=== PATIENT | female | born 1940 | race Caucasian/White ===

== ENCOUNTER 2017-09-14 08:00 | Day surgery (SDC) | payer MEDICARE ==
[~2017-09-14] VITALS: Ht 157.5 cm; Wt 67.1 kg
[~2017-09-14 08:00] MED LIST: ALLERGY NA50 MCG/ACT; AZELASTINE HCL0.1 %; COZAAR100 MG PO; CRESTOR20 MG PO; FENOFIBRATE130 MG PO; LEVOTHYROXIN100 MC1 PO; OMEPRAZOLE20 M1 PO; OSTEO BI-FLEX R1 TAB PO; PRESERVISION AREDS 2 PO; SG ASA LOW81 M1 PO; TURMERI1 PO; VITAMIN C500 M5 PO; WOMENS 50+ PO
[2017-09-14 10:58] VITALS: BP 131/65
== END 2017-09-14 11:25 | disposition home or self-care (01) ==
LOC: ENDO 08:00
PROVIDERS: ATTEND Surgery
PROC: 0DJD8ZZ Inspection of Lower Intestinal Tract, Via Natural or Artificial Opening Endoscopic (ICD-10-PCS; principal; 2017-09-14)
DX: Z12.11 Encounter for screening for malignant neoplasm of colon (principal); K57.30 Diverticulosis of large intestine without perforation or abscess without bleeding; I25.10 Atherosclerotic heart disease of native coronary artery without angina pectoris; E03.9 Hypothyroidism, unspecified; Z95.5 Presence of coronary angioplasty implant and graft

== ENCOUNTER 2018-04-27 10:39 | Emergency (ER) | payer MEDICARE ==
[~2018-04-27] VITALS: Ht 157.5 cm; Wt 80.0 kg
[2018-04-27] MEDS ORDERED: TORADOL PO (11:50)
[2018-04-27] MEDS ORDERED: MEDDOSEPAK PO (11:50)
[2018-04-27 11:56] VITALS: BP 154/79
== END 2018-04-27 12:05 | disposition home or self-care (01) ==
LOC: ED 10:39
DX: M47.816 Spondylosis without myelopathy or radiculopathy, lumbar region (principal); I10 Essential (primary) hypertension; I25.2 Old myocardial infarction; E78.5 Hyperlipidemia, unspecified; Z95.5 Presence of coronary angioplasty implant and graft

== ENCOUNTER 2019-12-05 | Emergency (ER) | payer MEDICARE ==
[~2019-12-05] MED LIST changes: +MEDDOSEPAK PO; +TORADOL PO
[2019-12-05 11:11] LABS: HEMATOCRIT 40.8 % (37.0-47.0); HEMOGLOBIN 13.7 g/dl (12.0-16.0); IMMATURE GRANULOCYTES 0.3 % (0.0-5.0); MEAN CELL VOLUME 93.2 fL CALC (80.0-100.0); MEAN CORPUSCULAR HGB 31.3 pG CALC (26.0-32.0); MEAN CORPUSCULAR HGB CONC 33.6 g/L CALC (32.0-36.0); NEUT# 4.43 thou/uL (2.00-7.15); RED BLOOD COUNT 4.38 mill/uL (4.20-5.60); RED CELL DISTRI WIDTH 12.9 % (11.5-15.5)
[2019-12-05 11:29] LABS: ALKALINE PHOSPHATASE 77 u/l (38-126); AMYLASE 47 u/l (30-110); ANION GAP 15 (6-22 (CALC)); BUN 7 mg/dL (8-23); BUN/CREATININE RATIO 13 (12-20 (CALC)); CARBON DIOXIDE 26 mmol/l (22-30); CHLORIDE 103 mmol/l (95-108); CREATININE 0.6 mg/dL (0.5-1.0); GFR > 60 ML/MIN (>=60 (CALC)); GFR FOR AFR.AMER. > 60 ML/MIN (>=60 (CALC)); LIPASE 75 u/l (23-300); POTASSIUM 3.6 mmol/l (3.5-5.1); SGOT/AST 24 u/l (9-36); SODIUM 140 mmol/l (137-146)
[2019-12-05 11:37] LABS: ALBUMIN 4.3 g/dL (3.2-5.0); BILIRUBIN, TOTAL 0.4 mg/dL (0.0-1.4); TOTAL PROTEIN 7.1 g/dL (6.3-8.2)
[2019-12-05] MEDS ORDERED: BENICAR40 MG PO (11:39)
[2019-12-05] MEDS ORDERED: SB ALLERGY10 MG PO (11:40)
[2019-12-05] MEDS ORDERED: METOPROL TAR25 M1 PO (11:41)
[2019-12-05] MEDS ORDERED: OMEGA PO (11:41)
[2019-12-05] MEDS ORDERED: IRON27 MG PO (11:42)
[2019-12-05] MEDS ORDERED: ZETIA10 MG PO (11:44)
[2019-12-05] MEDS ORDERED: COLACE100 MG PO (11:44)
[2019-12-05] MEDS ORDERED: D3400 UNIT PO (11:45)
[2019-12-05] MEDS ORDERED: B COMPLE2 PO (11:46)
[2019-12-05 13:19] LABS: URINE BILIRUBIN - DIPSTICK NEGATIVE (NEGATIVE); URINE BLOOD DIPSTICK NEGATIVE (NEGATIVE); URINE COLOR YELLOW; URINE GLUCOSE - DIPSTICK NEGATIVE (NEGATIVE); URINE KETONE NEGATIVE (NEGATIVE); URINE LEUK ESTERASE TRACE (NEGATIVE); URINE NITRITE - DIPSTICK NEGATIVE (Negative); URINE PROTEIN - DIPSTICK NEGATIVE (NEG-TRACE); URINE SPECIFIC GRAVITY 1.025; URINE UROBILINOGEN - DIPSTICK 0.2 E.U./dL (0.2)
[2019-12-05] MEDS ORDERED: MIRALAX3350 N1 PO (13:29)
[2019-12-24] MEDS ORDERED: VIT E COMPLX400 UNIT PO (10:46)
[2019-12-24] MEDS ORDERED: NITROGLYCER0.4 MG SL (10:52)
[2020-04-15] MEDS ORDERED: NIFEDIPINE30 MG PO (12:29)
[2020-04-15] MEDS ORDERED: MELATONIN QUICK5 MG PO (12:30)
== END 2019-12-05 13:50 | disposition home or self-care (01) ==
PROVIDERS: Family Medicine
DX: K59.00 Constipation, unspecified (principal); I10 Essential (primary) hypertension; I25.2 Old myocardial infarction; Z95.5 Presence of coronary angioplasty implant and graft
CPT/HCPCS: S0164

== ENCOUNTER 2019-12-25 | Day surgery (SDC) | payer MEDICARE ==
[~2019-12-25] MED LIST changes: +B COMPLE2 PO; +BENICAR40 MG PO; +COLACE100 MG PO; +D3400 UNIT PO; +IRON27 MG PO; +METOPROL TAR25 M1 PO; +MIRALAX3350 N1 PO; +NITROGLYCER0.4 MG SL; +OMEGA PO; +SB ALLERGY10 MG PO; +VIT E COMPLX400 UNIT PO; +ZETIA10 MG PO
[2019-12-25] MEDS ORDERED: AMOXICILLIN500 M2 PO (09:36)
[2019-12-25] MEDS ORDERED: CLARITHROMYC500 M2 PO (09:36)
[2019-12-25] MEDS ORDERED: OMEPRAZOLE DR40 MG PO (09:36)
[2020-04-15] MEDS ORDERED: NIFEDIPINE30 MG PO (12:29)
[2020-04-15] MEDS ORDERED: MELATONIN QUICK5 MG PO (12:30)
== END 2019-12-25 10:10 | disposition home or self-care (01) ==
PROC: 0DBN8ZX Excision of Sigmoid Colon, Via Natural or Artificial Opening Endoscopic, Diagnostic (ICD-10-PCS; principal; 2019-12-25)
PROC: 0DB98ZX Excision of Duodenum, Via Natural or Artificial Opening Endoscopic, Diagnostic (ICD-10-PCS; 2019-12-25)
DX: K57.31 Diverticulosis of large intestine without perforation or abscess with bleeding (principal); K63.5 Polyp of colon; K29.71 Gastritis, unspecified, with bleeding; K44.9 Diaphragmatic hernia without obstruction or gangrene; K26.4 Chronic or unspecified duodenal ulcer with hemorrhage; K64.4 Residual hemorrhoidal skin tags; K64.8 Other hemorrhoids; I10 Essential (primary) hypertension

== ENCOUNTER 2020-04-22 07:52 | Day surgery (SDC) | payer MEDICARE ==
[~2020-04-22 07:52] MED LIST changes: +AMOXICILLIN500 M2 PO; +CLARITHROMYC500 M2 PO; +MELATONIN QUICK5 MG PO; +NIFEDIPINE30 MG PO; +OMEPRAZOLE DR40 MG PO
[2020-04-22 10:31] VITALS: BP 132/58
[2020-04-22 11:07] LABS: HEMATOCRIT 35.7 % (37.0-47.0); HEMOGLOBIN 12.3 g/dl (12.0-16.0); MEAN CELL VOLUME 92.5 fL CALC (80.0-100.0); MEAN CORPUSCULAR HGB 31.9 pG CALC (26.0-32.0); MEAN CORPUSCULAR HGB CONC 34.5 g/dL CAL (32.0-36.0); RED BLOOD COUNT 3.86 mill/uL (4.20-5.60); RED CELL DISTRI WIDTH 12.9 % (11.5-15.5)
== END 2020-04-22 11:05 | disposition home or self-care (01) ==
LOC: ENDO 07:52 → ORM 09:10 → ENDO 09:10 → ORM 10:00 → ENDO 11:05
PROVIDERS: ATTEND Surgery
PROC: 0DB68ZX Excision of Stomach, Via Natural or Artificial Opening Endoscopic, Diagnostic (ICD-10-PCS; principal; 2020-04-22)
PROC: 0DB78ZX Excision of Stomach, Pylorus, Via Natural or Artificial Opening Endoscopic, Diagnostic (ICD-10-PCS; 2020-04-22)
DX: K29.80 Duodenitis without bleeding (principal); K29.50 Unspecified chronic gastritis without bleeding; K44.9 Diaphragmatic hernia without obstruction or gangrene; I10 Essential (primary) hypertension; I25.2 Old myocardial infarction; Z87.11 Personal history of peptic ulcer disease; Z95.5 Presence of coronary angioplasty implant and graft; Z86.19 Personal history of other infectious and parasitic diseases; Z11.59 Encounter for screening for other viral diseases

== ENCOUNTER 2021-03-03 16:55 | Emergency (ER) | payer MEDICARE ==
[2021-03-03 18:06] LABS: HEMATOCRIT 38.6 % (37.0-47.0); HEMOGLOBIN 13.1 g/dl (12.0-16.0); IMMATURE GRANULOCYTES 0.3 % (0.0-5.0); MEAN CELL VOLUME 94.4 fL CALC (80.0-100.0); MEAN CORPUSCULAR HGB CONC 33.9 g/dL CAL (32.0-36.0); NEUT# 3.76 thou/uL (2.00-7.15); RED BLOOD COUNT 4.09 mill/uL (4.20-5.60); RED CELL DISTRI WIDTH 12.8 % (11.5-15.5)
[2021-03-03 18:25] LABS: ALBUMIN 4.3 g/dL (3.2-5.0); ALKALINE PHOSPHATASE 83 u/l (38-126); ANION GAP 11 (6-22 (CALC)); BILIRUBIN, TOTAL 0.5 mg/dL (0.0-1.4); BUN 11 mg/dL (8-23); BUN/CREATININE RATIO 20 (12-20 (CALC)); CARBON DIOXIDE 27 mmol/l (22-30); CHLORIDE 105 mmol/l (95-108); CREATININE 0.6 mg/dL (0.5-1.0); GFR > 60 ML/MIN (>=60 (CALC)); GFR FOR AFR.AMER. > 60 ML/MIN (>=60 (CALC)); LIPASE 94 u/l (23-300); POTASSIUM 3.5 mmol/l (3.5-5.1); SGOT/AST 40 u/l (9-36); SODIUM 139 mmol/l (137-146)
[2021-03-03 18:32] LABS: D-DIMER 0.31 mg/L (0.19-0.60)
[2021-03-03 18:37] LABS: ACT PARTIAL THROMBO TIME 21.4 SECONDS (20.0-32.5); PROTHROMBIN TIME 10.1 SECONDS (9.0-12.5)
[2021-03-03] MEDS ORDERED: CLARITIN10 M2 PO (19:34)
[2021-03-03] MEDS ORDERED: KEFLEX500 MG PO (19:34)
[2021-03-03 20:13] VITALS: BP 128/57
== END 2021-03-03 20:34 | disposition home or self-care (01) ==
LOC: ED 16:55
DX: J32.9 Chronic sinusitis, unspecified (principal); I10 Essential (primary) hypertension; E78.5 Hyperlipidemia, unspecified; I25.2 Old myocardial infarction; Z95.5 Presence of coronary angioplasty implant and graft; Z20.822 Contact with and (suspected) exposure to COVID-19; R06.02 Shortness of breath

== ENCOUNTER 2021-09-14 17:47 | Emergency (ER) | payer MEDICARE ==
[~2021-09-14] VITALS: Ht 154.9 cm; Wt 64.0 kg
[~2021-09-14 17:47] MED LIST changes: +CLARITIN10 M2 PO; +KEFLEX500 MG PO
[2021-09-14] MEDS ORDERED: TREXALL5 MG PO (18:20)
[2021-09-14 19:30] LABS: HEMATOCRIT 38.4 % (37.0-47.0); HEMOGLOBIN 13.1 g/dl (12.0-16.0); IMMATURE GRANULOCYTES 0.2 % (0.0-5.0); MEAN CORPUSCULAR HGB 32.8 pG CALC (26.0-32.0); MEAN CORPUSCULAR HGB CONC 34.1 g/dL CAL (32.0-36.0); RED CELL DISTRI WIDTH 12.9 % (11.5-15.5)
[2021-09-14 19:47] LABS: ALKALINE PHOSPHATASE 85 u/l (38-126); ANION GAP 9 (6-22 (CALC)); BILIRUBIN, TOTAL 0.4 mg/dL (0.0-1.4); BUN 11 mg/dL (8-23); BUN/CREATININE RATIO 17 (12-20 (CALC)); CARBON DIOXIDE 29 mmol/l (22-30); CHLORIDE 107 mmol/l (95-108); CREATININE 0.6 mg/dL (0.5-1.0); GFR > 60 ML/MIN (>=60 (CALC)); GFR FOR AFR.AMER. > 60 ML/MIN (>=60 (CALC)); POTASSIUM 3.7 mmol/l (3.5-5.1); SGOT/AST 41 u/l (9-36); SODIUM 141 mmol/l (137-146); TOTAL PROTEIN 6.6 g/dL (6.3-8.2)
[2021-09-14 21:32] LABS: URINE BILIRUBIN - DIPSTICK NEGATIVE (NEGATIVE); URINE BLOOD DIPSTICK NEGATIVE (NEGATIVE); URINE COLOR YELLOW; URINE GLUCOSE - DIPSTICK NEGATIVE (NEGATIVE); URINE KETONE NEGATIVE (NEGATIVE); URINE LEUK ESTERASE TRACE (NEGATIVE); URINE PROTEIN - DIPSTICK NEGATIVE (NEG-TRACE); URINE SPECIFIC GRAVITY 1.025; URINE UROBILINOGEN - DIPSTICK 0.2 E.U./dL (0.2)
[2021-09-14 21:35] LABS: URINE NITRITE - DIPSTICK NEGATIVE (Negative)
[2021-09-14 22:23] VITALS: BP 147/77
== END 2021-09-14 22:37 | disposition home or self-care (01) ==
LOC: ED 17:47
PROVIDERS: Family Medicine
DX: R10.30 Lower abdominal pain, unspecified (principal); F41.9 Anxiety disorder, unspecified; R19.7 Diarrhea, unspecified; I10 Essential (primary) hypertension; I25.2 Old myocardial infarction; E78.5 Hyperlipidemia, unspecified; Z20.822 Contact with and (suspected) exposure to COVID-19
CPT/HCPCS: Q9967

== ENCOUNTER 2022-06-29 13:32 | Observation (INO) | payer MEDICARE ==
[~2022-06-29] VITALS: Ht 154.9 cm; Wt 63.1 kg
[2022-06-29] VITALS (12 sets, daily range): BP systolic 109–141; BP diastolic 59–77
[~2022-06-29 13:32] MED LIST changes: +TREXALL5 MG PO
[2022-06-29 14:11] LABS: HEMATOCRIT 39.5 % (37.0-47.0); HEMOGLOBIN 13.8 g/dl (12.0-16.0); IMMATURE GRANULOCYTES 0.2 % (0.0-5.0); MEAN CELL VOLUME 93.6 fL CALC (80.0-100.0); MEAN CORPUSCULAR HGB 32.7 pG CALC (26.0-32.0); MEAN CORPUSCULAR HGB CONC 34.9 g/dL CAL (32.0-36.0); NEUT# 3.52 thou/uL (2.00-7.15); RED BLOOD COUNT 4.22 mill/uL (4.20-5.60); RED CELL DISTRI WIDTH 12.3 % (11.5-15.5)
[2022-06-29 14:27] LABS: ALBUMIN 4.1 g/dL (3.2-5.0); ALKALINE PHOSPHATASE 104 u/l (38-126); ANION GAP 11 (6-22 (CALC)); BILIRUBIN, TOTAL 0.3 mg/dL (0.0-1.4); BUN 10 mg/dL (8-23); BUN/CREATININE RATIO 20 (12-20 (CALC)); CARBON DIOXIDE 25 mmol/l (22-30); CHLORIDE 109 mmol/l (95-108); CREATININE 0.5 mg/dL (0.5-1.0); GFR FOR AFR.AMER. > 60 ML/MIN (>=60 (CALC)); GFR OTHER RACES > 60 ML/MIN (>=60 (CALC)); POTASSIUM 3.8 mmol/l (3.5-5.1); SGOT/AST 56 u/l (9-36); SODIUM 141 mmol/l (137-146); TOTAL PROTEIN 6.8 g/dL (6.3-8.2)
[2022-06-29 14:54] LABS: URINE BILIRUBIN - DIPSTICK NEGATIVE (NEGATIVE); URINE BLOOD DIPSTICK NEGATIVE (NEGATIVE); URINE COLOR YELLOW; URINE GLUCOSE - DIPSTICK NEGATIVE (NEGATIVE); URINE KETONE NEGATIVE (NEGATIVE); URINE LEUK ESTERASE NEGATIVE (NEGATIVE); URINE PROTEIN - DIPSTICK NEGATIVE (NEG-TRACE); URINE UROBILINOGEN - DIPSTICK 0.2 E.U./dL (0.2)
[2022-06-29 14:56] LABS: URINE NITRITE - DIPSTICK NEGATIVE (Negative)
[2022-06-29] MEDS ORDERED: FLORASTOR250 M1 PO (15:29)
[2022-06-30] VITALS (10 sets, daily range): BP systolic 116–141; BP diastolic 55–84
[2022-06-30 09:32] LABS: BILIRUBIN, TOTAL 0.5 mg/dL (0.0-1.4); TOTAL PROTEIN 6.8 g/dL (6.3-8.2)
== END 2022-06-30 16:04 | disposition home or self-care (01) ==
LOC: ED 13:32 → ED-I 14:16 → ED 14:16 → ED-I 16:10 → ED 17:49 → MS2 17:50
PROVIDERS: Family Medicine; Nurse Practitioner; ADMIT Internal Medicine; ATTEND Internal Medicine
PROC: 0DJ08ZZ Inspection of Upper Intestinal Tract, Via Natural or Artificial Opening Endoscopic (ICD-10-PCS; principal; 2022-06-30)
DX: K22.6 Gastro-esophageal laceration-hemorrhage syndrome (principal); K44.9 Diaphragmatic hernia without obstruction or gangrene; K29.70 Gastritis, unspecified, without bleeding; I10 Essential (primary) hypertension; I25.10 Atherosclerotic heart disease of native coronary artery without angina pectoris; K21.9 Gastro-esophageal reflux disease without esophagitis; E03.9 Hypothyroidism, unspecified; E78.5 Hyperlipidemia, unspecified; H81.10 Benign paroxysmal vertigo, unspecified ear; I25.2 Old myocardial infarction; Z95.5 Presence of coronary angioplasty implant and graft; Z20.822 Contact with and (suspected) exposure to COVID-19
CPT/HCPCS: G0378; Q9967

== ENCOUNTER 2022-10-11 15:50 | Emergency (ER) | payer MEDICARE ==
[~2022-10-11] VITALS: Ht 154.9 cm; Wt 59.4 kg
[~2022-10-11 15:50] MED LIST changes: +FLORASTOR250 M1 PO
[2022-10-11 18:41] VITALS: BP 188/147
[2022-10-11 20:46] LABS: HEMATOCRIT 37.6 % (37.0-47.0); HEMOGLOBIN 13.2 g/dl (12.0-16.0); MEAN CORPUSCULAR HGB CONC 35.1 g/dL CAL (32.0-36.0); NEUT# 3.1 thou/uL (2.00-7.15); RED CELL DISTRI WIDTH 12.4 % (11.5-15.5)
[2022-10-11 20:47] VITALS: BP 152/75
[2022-10-11 20:53] LABS: URINE BILIRUBIN - DIPSTICK NEGATIVE (NEGATIVE); URINE BLOOD DIPSTICK NEGATIVE (NEGATIVE); URINE COLOR YELLOW; URINE GLUCOSE - DIPSTICK NEGATIVE (NEGATIVE); URINE KETONE NEGATIVE (NEGATIVE); URINE LEUK ESTERASE NEGATIVE (NEGATIVE); URINE PROTEIN - DIPSTICK NEGATIVE (NEG-TRACE); URINE UROBILINOGEN - DIPSTICK 0.2 E.U./dL (0.2)
[2022-10-11 20:54] LABS: URINE NITRITE - DIPSTICK NEGATIVE (Negative)
[2022-10-11 21:00] VITALS: BP 124/78
[2022-10-11 21:09] LABS: ALBUMIN 4.1 g/dL (3.2-5.0); ALKALINE PHOSPHATASE 102 u/l (38-126); ANION GAP 11 (6-22 (CALC)); BILIRUBIN, TOTAL 0.4 mg/dL (0.0-1.4); BUN 8 mg/dL (8-23); BUN/CREATININE RATIO 16 (12-20 (CALC)); C-REACTIVE PROTEIN < 0.5 mg/dL (0-0.9); CARBON DIOXIDE 27 mmol/l (22-30); CHLORIDE 108 mmol/l (95-108); CREATININE 0.5 mg/dL (0.5-1.0); GFR FOR AFR.AMER. > 60 ML/MIN (>=60 (CALC)); GFR OTHER RACES > 60 ML/MIN (>=60 (CALC)); POTASSIUM 3.4 mmol/l (3.5-5.1); SGOT/AST 39 u/l (9-36); SODIUM 142 mmol/l (137-146); TOTAL PROTEIN 6.5 g/dL (6.3-8.2)
[2022-10-11] MEDS ORDERED: PREDNISONE10 MG PO (21:18)
[2022-10-11 21:20] VITALS: BP 124/78
== END 2022-10-11 21:26 | disposition home or self-care (01) ==
LOC: ED 15:50
PROVIDERS: Nurse Practitioner
DX: M25.50 Pain in unspecified joint (principal); I10 Essential (primary) hypertension; Z20.822 Contact with and (suspected) exposure to COVID-19

== ENCOUNTER 2023-02-10 09:43 | Day surgery (SDC) | payer MEDICARE ==
[~2023-02-10] VITALS: Ht 157.5 cm; Wt 63.5 kg
[~2023-02-10 09:43] MED LIST changes: +ALENDRONATE SOD70 MG PO; +ARICEPT PO; +ESCITALOPRAM OX10 MG PO; +GABAPENTIN100 MG PO; +MELOXICAM7.5 MG PO; +MONTELUKAST SOD10 MG PO; +PREDNISONE10 MG PO
[2023-02-10 11:39] VITALS: BP 113/57
[2023-02-10] MEDS ORDERED: ESOMEPRAZOLE MA20 MG PO (11:49)
== END 2023-02-10 11:53 | disposition home or self-care (01) ==
LOC: ENDO 09:43 → ORM 10:00 → ENDO 11:40 → ORM 11:40 → ENDO 11:53 → ORM 12:20
PROVIDERS: ATTEND Surgery
PROC: 0DB48ZX Excision of Esophagogastric Junction, Via Natural or Artificial Opening Endoscopic, Diagnostic (ICD-10-PCS; principal; 2023-02-10)
PROC: 0D758ZZ Dilation of Esophagus, Via Natural or Artificial Opening Endoscopic (ICD-10-PCS; 2023-02-10)
DX: K22.2 Esophageal obstruction (principal); K44.9 Diaphragmatic hernia without obstruction or gangrene; K20.90 Esophagitis, unspecified without bleeding; I10 Essential (primary) hypertension